=== PATIENT | female | born 1990 | race Caucasian/White ===

== ENCOUNTER 2017-02-11 23:20 | Emergency (ER) | payer OTHER ==
[2017-02-11 23:27] VITALS: BP 128/75; PULSE 86; RESP 20; TEMP 98.3
--- NOTE | 2017-02-11 23:55 | ED ---
Female Urogenital HPI - General Chief complaint: Urogenital Stated complaint: UTI () Time Seen by Provider: 02/11/17 23:43 Source: patient, RN notes reviewed Mode of arrival: ambulatory Limitations: no limitations - History of Present Illness Initial comments: Patient is a 26-year-old female presents to the emergency room for evaluation of dysuria. Patient states she just found out she was on Thursday. Patient states that at work she began having urinary frequency and burning. Patient states she is having a pressure-like sensation in her bladder area. Patient states she does have a history of UTIs with past pregnancies. Patient states this feels exactly like a urinary tract infection. Patient denies blood in the urine. Patient denies vaginal bleeding. Patient denies abnormal vaginal discharge or vaginal discomfort. Patient denies history of STDs. Patient denies flank pain. Patient denies fevers or chills. Patient states he has been nauseous over the past week but denies vomiting. Patient denies headache or dizziness. Patient denies chest pain or shortness of breath. Patient states she is still waiting to here back from her MEDICATION AIDE, Dr. Victoria. Patient denies any other symptoms or complaints at this time. Last Menstrual Period: 01/13/17 - Related Data Home Medications Medication Instructions Recorded Confirmed Pnv with Ca,No.72/Iron/FA 1 tab PO DAILY 02/26/16 02/26/16 [ Plus Tablet] Previous Rx's Medication Instructions Recorded Nitrofurantoin Monohyd/M-Cryst 100 mg PO Q12HR 5 Days 02/12/17 [Macrobid] Allergies Allergy/AdvReac Type Severity Reaction Status Date / Time Penicillins Allergy Unknown Verified 02/12/17 01:21 Childhood Review of Systems ROS Statement: Those systems with pertinent positive or pertinent negative responses have been documented in the HPI. ROS Other: All systems not noted in ROS Statement are negative. Past Medical History Past Medical History: No Reported History History of Any Multi-Drug Resistant Organisms: None Reported Past Surgical History: Cholecystectomy Past Psychological History: No Psychological Hx Reported Smoking Status: Never smoker Past Alcohol Use History: None Reported Past Drug Use History: None Reported General Exam - General Exam Comments Initial Comments: Sitting in exam room, no acute distress. Limitations: no limitations General appearance: alert, in no apparent distress Head exam: Present: atraumatic, normocephalic, normal inspection Eye exam: Present: normal appearance ENT exam: Present: normal exam Neck exam: Present: normal inspection Respiratory exam: Present: normal lung sounds bilaterally. Absent: respiratory distress Cardiovascular Exam: Present: regular rate, normal rhythm, normal heart sounds GI/Abdominal exam: Present: soft, normal bowel sounds. Absent: distended, tenderness, guarding, rebound, rigid Extremities exam: Present: normal inspection Back exam: Present: normal inspection Neurological exam: Present: alert, oriented X3, CN II-XII intact, normal gait Psychiatric exam: Present: normal affect, normal mood Skin exam: Present: warm, dry, intact, normal color. Absent: rash Course Vital Signs 02/11/17 23:25 Temperature 98.3 F Pulse Rate 86 Respiratory 20 Rate Blood Pressure 128/75 O2 Sat by Pulse 99 Oximetry Medical Decision Making - Medical Decision Making Patient is a 26-year-old female presents to the emergency room for evaluation of dysuria. Patient states just found out she was on Thursday. Patient denies vaginal bleeding or significant abdominal discomfort. Urinalysis suspicious for urinary tract infection. Patient will be started on Macrobid. Patient states she understands everything that was discussed with her. Return parameters discussed. Case discussed Dr. Mathews. - Lab Data Lab Results 02/11/17 02/11/17 Range/Units 23:30 23:30 Urine Color Colorless Urine Appearance Clear (Clear) Urine pH 6.5 (5.0-8.0) Ur Specific Shelby 1.003 (1.001-1.035) Urine Protein Negative (Negative) Urine Glucose (UA) Negative (Negative) Urine Ketones Negative (Negative) Urine Blood Moderate H (Negative) Urine Nitrite Negative (Negative) Urine Bilirubin Negative (Negative) Urine Urobilinogen <2.0 (<2.0) mg/dL Ur Leukocyte Esterase Large H (Negative) Urine RBC 3 (0-5) /hpf Urine WBC 66 H (0-5) /hpf Ur Squamous Epith Cells 1 (0-4) /hpf Urine Bacteria Occasional H (None) /hpf Urine HCG, Qual Detected (Not Detectd) Disposition Clinical Impression: Urinary tract infection, Disposition: HOME SELF-CARE Condition: Good Instructions: Urinary Tract Infection in (ED) Additional Instructions: Take antibiotics as directed. Drink plenty of water. Please follow-up with primary care provider or MEDICATION AIDE. If any new symptom arises or symptoms worsen, return to ER as soon as possible. Prescriptions: Nitrofurantoin Monohyd/M-Cryst [Macrobid] 100 mg PO Q12HR 5 Days Referrals: Lesley Victoria DO [Doctor of Osteopathic Medicine] - 1-2 days Time of Disposition: 00:19
[2017-02-12 00:10] LABS: Appearance,Urine Clear (Clear); Bacteria,Urine Occasional /hpf; Bilirubin,Urine Negative (Negative); Glucose,Urine (UA) Negative (Negative); Ketones,Urine Negative (Negative); Leukocyte Esterase,Urine Large (Negative); Nitrite,Urine Negative (Negative); PH, Urine 6.5 (5.0-8.0); Particle Count 3821; Protein,Urine Negative (Negative); RBC,Urine 3 /hpf (0-5); Specific Gravity,Urine 1.003 (1.001-1.035); Squamous Epithelial Cell,Urine 1 /hpf (0-4); UA Billing (MACRO vs. MICRO) MICRO; Urobilinogen,Urine <2.0 mg/dL (<2.0); WBC,Urine 66 /hpf (0-5)
[2017-02-12] MEDS ORDERED: NITROFURANTOIN MONOHYD/M-CRYST 100 MG CAP PO STA (00:21)
== END 2017-02-12 00:27 | disposition home or self-care (01) ==
LOC: EC 23:20
DX: O23.41 Unspecified infection of urinary tract in pregnancy, first trimester (principal); Z79.899 Other long term (current) drug therapy; Z88.0 Allergy status to penicillin; Z3A.00 Weeks of gestation of pregnancy not specified
CPT/HCPCS: 81001; 81025; 87077; 87086; 87186; 99283

== ENCOUNTER 2017-02-12 01:12 | Emergency (ER) | payer OTHER ==
[2017-02-12 01:21] VITALS: RESP 18
--- NOTE | 2017-02-12 01:55 | ED ---
Female Urogenital HPI - General Chief complaint: Vaginal Bleeding Stated complaint: vaginal bleeding Time Seen by Provider: 02/12/17 01:25 Source: patient, RN notes reviewed Mode of arrival: ambulatory Limitations: no limitations - History of Present Illness Initial comments: Patient is a 26-year-old female presents to the emergency room for the evaluation of vaginal bleeding. Patient was recently discharged here today and diagnosed with a urinary tract infection. Patient states she was on her way to the pharmacy and went to the bathroom and noticed bright red blood after wiping herself with toilet paper. Patient denies any clotting. Patient states she recently found out she was on Thursday. Patient states her last menstrual cycle was 01/13/17. Patient denies any abdominal pain or cramping. Patient states the blood worried her so she thought she should be evaluated. Patient denies being on any medications besides vitamins and was just prescribed Macrobid. Patient denies history of STDs. Patient is . - Related Data Home Medications Medication Instructions Recorded Confirmed Pnv with Ca,No.72/Iron/FA 1 tab PO DAILY 02/26/16 02/12/17 [ Plus Tablet] Previous Rx's Medication Instructions Recorded Nitrofurantoin Monohyd/M-Cryst 100 mg PO Q12HR 5 Days 02/12/17 [Macrobid] Allergies Allergy/AdvReac Type Severity Reaction Status Date / Time Penicillins Allergy Unknown Verified 02/12/17 01:21 Childhood Review of Systems ROS Statement: Those systems with pertinent positive or pertinent negative responses have been documented in the HPI. ROS Other: All systems not noted in ROS Statement are negative. Past Medical History Past Medical History: No Reported History History of Any Multi-Drug Resistant Organisms: None Reported Past Surgical History: Cholecystectomy Past Psychological History: No Psychological Hx Reported Smoking Status: Never smoker Past Alcohol Use History: None Reported Past Drug Use History: None Reported General Exam - General Exam Comments Initial Comments: Sitting in exam room, no acute distress. Limitations: no limitations General appearance: alert, in no apparent distress Head exam: Present: atraumatic, normocephalic, normal inspection Eye exam: Present: normal appearance ENT exam: Present: normal exam Neck exam: Present: normal inspection Respiratory exam: Present: normal lung sounds bilaterally. Absent: respiratory distress Cardiovascular Exam: Present: regular rate, normal rhythm, normal heart sounds GI/Abdominal exam: Present: soft, normal bowel sounds. Absent: distended, tenderness, guarding, rebound, rigid External exam: Present: normal external exam Speculum exam: Present: vaginal discharge By manual exam: Present: normal by manual exam. Absent: cervical motion tenderness Extremities exam: Present: normal inspection Back exam: Present: normal inspection Neurological exam: Present: alert, oriented X3, CN II-XII intact, normal gait Psychiatric exam: Present: normal affect, normal mood Skin exam: Present: warm, dry, intact, normal color. Absent: rash Course Vital Signs 02/12/17 01:17 Temperature 98.5 F Pulse Rate 95 Respiratory 18 Rate Blood Pressure 144/81 O2 Sat by Pulse 98 Oximetry Medical Decision Making - Medical Decision Making Patient is a 26-year-old female presents to the emergency room for evaluation of vaginal bleeding. Patient recently found out she was on Thursday. Patient states her last menstrual cycle was 01/13/17. Patient was in here earlier and diagnosed with urinary tract infection and positive urine beta hCG. Patient's serum beta-hCG is 145.7. No bleeding noted on pelvic exam. Ultrasound: 2 mm intrauterine probable chorionic sac. No definite internal embryo or yolk sac is seen at this time. Patient's blood type is B positive. Patient states she will contact her SHAREPOINT TRAINER, Dr. Victoria tomorrow morning. Patient states she understands everything that was discussed with her. Return parameters discussed. Case discussed with Dr. Mathews. - Lab Data Lab Results 02/12/17 02/12/17 02/12/17 Range/Units 01:40 01:40 02:19 HCG, Quant 145.7 mIU/mL Trichomonas Ag (Rapid) Negative (Negative) Blood Type B Positive Blood Type Recheck No - Radiology Data Radiology results: report reviewed, image reviewed Disposition Clinical Impression: Threatened Disposition: HOME SELF-CARE Condition: Good Instructions: Threatened Miscarriage (ED) Additional Instructions: Please follow-up with SHAREPOINT TRAINER. If any new symptom arises or symptoms worsen, return to ER as soon as possible. Referrals: None,Stated [Primary Care Provider] - 1-2 days Lesley Victoria DO [Doctor of Osteopathic Medicine] - 1-2 days Time of Disposition: 03:12
--- NOTE | 2017-02-12 03:05 | US ---
EXAM: US Pelvis Complete, Transabdominal US Pelvis, Transvaginal CLINICAL HISTORY: Reason: Pain TECHNIQUE: Real-time transabdominal and transvaginal pelvic ultrasound (complete) with image documentation. Transvaginal imaging was used for better evaluation of the endometrium and adnexa. COMPARISON: No relevant prior studies available. FINDINGS/IMPRESSION: EXAM: US Pelvis Complete, Transabdominal US Pelvis, Transvaginal CLINICAL HISTORY: Reason: Pain TECHNIQUE: Real-time transabdominal and transvaginal pelvic ultrasound (complete) with image documentation. Transvaginal imaging was used for better evaluation of the endometrium and adnexa. COMPARISON: No relevant prior studies available. FINDINGS/IMPRESSION: EXAM: US Pelvis Complete, Transabdominal US Pelvis, Transvaginal CLINICAL HISTORY: Pain. TECHNIQUE: Real-time transabdominal and transvaginal pelvic ultrasound (complete) with image documentation. Transvaginal imaging was used for better evaluation of the endometrium and adnexa. COMPARISON: No relevant prior studies available. FINDINGS/IMPRESSION: 2 mm intrauterine probable chorionic sac. No definite internal embryo or yolk sac is seen at this time. Correlate with serial beta hCG values and short-term followup sonogram. No subchorionic bleed. 2.8 x 2 x 1.9 cm, likely corpus luteal cyst in right ovary. No adnexal masses or free fluid.
[2017-02-12 03:24] VITALS: BP 137/68; PULSE 77; TEMP 98
[2017-02-13 11:29] LABS: Chlamydia/GC Source Vaginal
== END 2017-02-12 03:24 | disposition home or self-care (01) ==
LOC: EC 01:12
DX: O20.0 Threatened abortion (principal); Z79.899 Other long term (current) drug therapy; Z88.0 Allergy status to penicillin; Z3A.00 Weeks of gestation of pregnancy not specified
CPT/HCPCS: 36415; 76801; 76817; 84702; 86900; 86901; 87070; 87205; 87491; 87591; 87808; 99284

== ENCOUNTER → 2017-02-16 | Outpatient (CLI) | payer OTHER | END | disposition home or self-care (01) | LOC: LABWHC1 12:16 | PROVIDERS: ATTEND Obstetrics & Gynecology | DX: Z34.81 Encounter for supervision of other normal pregnancy, first trimester (principal) | CPT/HCPCS: 36415; 84702 ==

== ENCOUNTER → 2017-03-11 | Outpatient (CLI) | payer OTHER ==
--- NOTE | 2017-03-11 14:23 | US ---
EXAMINATION TYPE: US OB <= 14 wk fetus DATE OF EXAM: 03/11/2017 1:59 PM COMPARISON: US 2017 CLINICAL HISTORY: Z87.59 Hx of miscarriage Z36 confirm dates. EXAM PERFORMED: Transabdominal (TA) EXAM MEASUREMENTS: GESTATIONAL AGE / DATING Physician Established: not established Dates by LMP: (8 weeks/1 day) EDC: 10/20/2017 Dates by First Scan: today Dates by Current Scan for: (7 weeks/6 days) EDC: 10/22/2017 MATERNAL ANATOMY Uterus: 9.2 x 7.0 x 4.7cm Right Ovary: 2.8 x 3.0 x 1.8cm Left Ovary: 2.5 x 1.5 x 1.6cm Post CDS / Adnexa: wnl Presence of free fluid: no Presence of corpus luteal cyst: in right ovary = 2.0 x 1.9 x 1.9cm Presence of subchorionic bleed: yes, GESTATION / SURVEY CRL: 1.5cm (7 weeks/6 days) Yolk Sac (normal less than 6mm): 3.3mm Heart Rate: 161 bpm Rhythm: Normal IUP: Viable IUP Date of LMP: 01/13/2017 Beta HcG (if available): NA IMPRESSION: Single, viable, IUP, 7 weeks/6 days, EDC: 10/22/2017, [id number] with a less than 1 cm subchorionic he morrhage
[2017-03-11 14:54] LABS: CH 29.6; CHCM 31.9; HCT 45.7 % (34.0-46.0); HDW 2.21; MCH 30.6 pg (25.0-35.0); MCHC 32.9 g/dL (31.0-37.0); Mean Platelet Volume 7.3; RBC 4.91 m/uL (3.80-5.40); RDW 13.5 % (11.5-15.5); WBC 9.3 k/uL (3.8-10.6)
[2017-03-11 15:07] LABS: Glucose 89 mg/dL (74-99); Non-African American GFR(MDRD) >60 (>60 ml/min/1.73 sqM)
[2017-03-11 15:38] LABS: Hepatitis B Surface Ag Index 0.06
[2017-03-12 04:56] LABS: Toxoplasma Antibody (IgG) <3.0 IU/mL (<7.2)
[2017-03-12 07:27] LABS: HIV-1/HIV-2 Ab Screen NONREAC (NON REAC)
== END | disposition home or self-care (01) ==
LOC: RADUSWWP 13:36
PROVIDERS: ATTEND Obstetrics & Gynecology
DX: O26.811 Pregnancy related exhaustion and fatigue, first trimester (principal); Z3A.01 Less than 8 weeks gestation of pregnancy; Z87.59 Personal history of other complications of pregnancy, childbirth and the puerperium
CPT/HCPCS: 36415; 76801; 82565; 82947; 85027; 86762; 86777; 86778; 86780; 86850; 86900; 86901; 87340; 87389

== ENCOUNTER → 2017-07-21 | Outpatient (CLI) | payer OTHER ==
[2017-07-21 09:31] LABS: CHCM 32.4; HDW 2.55; HGB 13.7 gm/dL (11.4-16.0); MCH 30.4 pg (25.0-35.0); MCHC 32.6 g/dL (31.0-37.0); MCV 93.1 fL (80.0-100.0); Mean Platelet Volume 7.3; RBC 4.51 m/uL (3.80-5.40); RDW 13.4 % (11.5-15.5); WBC 10.4 k/uL (3.8-10.6)
[2017-07-21 15:38] LABS: Treponemal Ab Non-Reactive (Non-Reactive)
== END | disposition home or self-care (01) ==
LOC: LABWHC1 08:02
PROVIDERS: ATTEND Pediatrics Neonatal-Perinatal Medicine
DX: O09.212 Supervision of pregnancy with history of pre-term labor, second trimester (principal); O35.1XX0 Maternal care for (suspected) chromosomal abnormality in fetus, not applicable or unspecified; O34.32 Maternal care for cervical incompetence, second trimester; Z3A.00 Weeks of gestation of pregnancy not specified
CPT/HCPCS: 36415; 82950; 85027; 86780; 87390

== ENCOUNTER → 2017-07-28 | Outpatient (CLI) | payer OTHER ==
[2017-07-28 12:53] LABS: Glucose 3 Hour, Gest 106 mg/dL
== END | disposition home or self-care (01) ==
LOC: LABWHC1 08:30
PROVIDERS: ATTEND Pediatrics Neonatal-Perinatal Medicine
DX: R73.09 Other abnormal glucose (principal)
CPT/HCPCS: 36415; 82951; 82952

== ENCOUNTER 2017-09-04 02:05 | Outpatient (CLI) | payer OTHER ==
[2017-09-04 03:08] VITALS: BP 129/87; PULSE 78; RESP 16; TEMP 96.5
--- NOTE | 2017-09-04 11:43 | P.MSEPDOC ---
Presenting Problems - Arrival Data Date of Arrival on Unit: 09/04/17 Time of Arrival on Unit: 02:05 Mode of Transport: Wheelchair - Complaint OB-Reason for Admission/Chief Complaint: Observation/Evaluation Comment: pelvic pressure Medical History - Information : 5 Para: 2 Term: 1 : 1 Abortions: Spontaneous or Elective: 0 Number of Living Children: 2 - Gestational Age Gestational Age by DAVE (wks/days): 33 Weeks and 3 Days - History Complications: Incompetent Cervix Review of Systems - Review of Systems Constitutional: No problems Breast: No problems ENT: No problems Cardiovascular: No problems Respiratory: No problems Gastrointestinal: No problems Genitourinary: No problems Musculoskeletal: No problems Neurological: No problems Skin: No problems Vital Signs - Temperature Temperature: 96.5 F Temperature Source: Temporal Artery Scan - Pulse Right Brachial Pulse Rate: 78 Pulse Assessment Method: Automatic Cuff - Respirations Respiratory Rate: 16 Oxygen Delivery Method: Room Air O2 Sat by Pulse Oximetry: 100 - Blood Pressure Right Arm Blood Pressure: 129/87 Blood Pressure Mean: 101 Blood Pressure Source: Automatic Cuff Medical Screen Scoring (Pre) - Cervical Exam Dilation: 0 cm = 0 Effacement: More than 50% = 2 Membranes: Intact - Uterine Contractions Frequency: N/A Duration: N/A Intensity: N/A - Maternal Vital Signs Maternal Temperature: N/A Maternal Blood Pressure: N/A Signs of Preeclampsia: N/A Maternal Respirations: N/A - Pain Assessment Pain Intensity: 0 - Assessment Baseline FHR: 142 Heart Rate - NICHD Category: Category I (Normal) = 0 NST: Reactive Position: N/A Station: N/A - Total Score Total Score (Pre): 2 - Level of Risk Level of Risk: Low (0-5) Physician Notification (Pre) - Physician Notified Physician Notified Date: 09/04/17 Physician Notified Time: 02:39 Spoke With: Devon Simeon Received: Yes - Notification Comment Comment: D/c pt home no cervical change Disposition - Disposition OB Disposition: Discharge to home Discharge Date: 09/04/17 Discharge Time: 02:44 I agree with the RN Medical Screening Exam: Yes Risk & Benefit of care provided described in d/c instruction: Yes Diagnosis: FALSE LABOR BEFORE 37 COMPLETED WEEKS OF GEST, SECOND TRI
== END 2017-09-04 02:44 | disposition home or self-care (01) ==
LOC: FBPOP 02:05
PROVIDERS: ATTEND Obstetrics & Gynecology
DX: O47.02 False labor before 37 completed weeks of gestation, second trimester (principal); Z3A.33 33 weeks gestation of pregnancy
CPT/HCPCS: 59025; G0463; 99213

== ENCOUNTER 2017-09-06 16:40 | Outpatient (CLI) | payer OTHER ==
[2017-09-06 18:11] VITALS: BP 100/61; PULSE 110; RESP 17; TEMP 97.4
--- NOTE | 2017-10-23 11:35 | P.MSEPDOC ---
Presenting Problems - Arrival Data Date of Arrival on Unit: 09/06/17 Time of Arrival on Unit: 16:40 Mode of Transport: Wheelchair - Complaint OB-Reason for Admission/Chief Complaint: Vaginal Bleeding Comment: Scant amount of bloody mucus noted while patient was at home. Medical History - Information : 5 Para: 2 Term: 1 : 1 Abortions: Spontaneous or Elective: 0 Number of Living Children: 2 - Gestational Age Gestational Age by DAVE (wks/days): 33 Weeks and 5 Days - History Complications: Incompetent Cervix, Prior Comment: Prior 32 week delivery Review of Systems - Review of Systems Constitutional: No problems Breast: No problems ENT: No problems Cardiovascular: No problems Respiratory: No problems Gastrointestinal: No problems Genitourinary: No problems Musculoskeletal: No problems Neurological: No problems Skin: No problems Vital Signs - Temperature Temperature: 97.4 F Temperature Source: Temporal Artery Scan - Pulse Pulse Oximetery Pulse Rate: 110 Pulse Assessment Method: Pulse Oximetry - Respirations Respiratory Rate: 17 Oxygen Delivery Method: Room Air O2 Sat by Pulse Oximetry: 98 - Blood Pressure Right Arm Blood Pressure: 100/61 Blood Pressure Mean: 74 Blood Pressure Source: Automatic Cuff Medical Screen Scoring (Pre) - Cervical Exam Dilation: Exam Deferred Effacement: Exam Deferred Membranes: Intact - Uterine Contractions Frequency: > 5 minutes apart = 1 Duration: N/A Intensity: N/A - Maternal Vital Signs Maternal Temperature: N/A Maternal Blood Pressure: N/A Signs of Preeclampsia: N/A Maternal Respirations: N/A - Pain Assessment Pain Scale Used: Numeric (1 - 10) Pain Intensity: 0 - Maternal Trauma Maternal Trauma: N/A - Assessment Baseline FHR: 135 Heart Rate - NICHD Category: Category I (Normal) = 0 NST: Reactive Position: N/A Station: N/A - Total Score Total Score (Pre): 1 - Level of Risk Level of Risk: Low (0-5) Physician Notification (Pre) - Physician Notified Physician Notified Date: 09/06/17 Physician Notified Time: 17:03 Physician/Practitioner Notifed:: Magdy Spoke With: Madgy New Order Received: Yes (Further monitoring for 30 minutes) Medical Screen Scoring (Post) - Cervical Exam Dilation: Exam Deferred Effacement: Exam Deferred Membranes: Intact - Uterine Contractions Frequency: > 5 minutes apart = 1 Duration: N/A Intensity: N/A - Maternal Vital Signs Maternal Temperature: N/A Maternal Blood Pressure: N/A Signs of Preeclampsia: N/A Maternal Respirations: N/A - Pain Assessment Pain Location and Character: Back Pain Scale Used: Numeric (1 - 10) Pain Intensity: 3 Pain Management Goal: 2 Pain Description: Cramping Pain Radiation Location: n/a Pain Frequency: Intermittent Pain Duration: 30 Pain Duration Units: Minutes Pain Behavior: Vocalization Effects of Pain: none Pain Aggravating Factors: None Pharmacological Interventions: Discuss Pain Med Options Non-Pharmacological Interventions: Darkened Room - Assessment Heart Rate: 135 Heart Rate - NICHD Category: Category I (Normal) = 0 NST: Reactive Position: N/A Station: N/A - Total Score Total Score (Post): 1 - Post Treatment Level of Risk Post Treatment Level of Risk: Low (0-5) Physician Notification (Post) - Physician Notified Physician Notified Date: 09/06/17 Physician Notified Time: 17:46 Physician/Practitioner Notified:: Magdy Spoke With: Magdy New Order Received: Yes (Discharge order) - Notification Comment Comment: To discharge patient and encourage patient to follow up this week with her high risk physician. Disposition - Disposition OB Disposition: Discharge to home Discharge Date: 09/06/17 Discharge Time: 17:58 I agree with the RN Medical Screening Exam: Yes Risk & Benefit of care provided described in d/c instruction: Yes Diagnosis: FALSE LABOR BEFORE 37 COMPLETED WEEKS OF GEST, THIRD TRI
== END 2017-09-06 17:58 | disposition home or self-care (01) ==
LOC: FBPOP 16:40
PROVIDERS: ATTEND Obstetrics & Gynecology
DX: O47.03 False labor before 37 completed weeks of gestation, third trimester (principal); Z3A.33 33 weeks gestation of pregnancy
CPT/HCPCS: 59025; G0463; 99213

== ENCOUNTER 2017-09-27 22:44 | Outpatient (CLI) | payer OTHER ==
[2017-09-27 23:58] VITALS: BP 130/80; PULSE 95; RESP 16; TEMP 96.9
--- NOTE | 2017-10-07 07:41 | P.MSEPDOC ---
Presenting Problems - Arrival Data Date of Arrival on Unit: 09/27/17 Time of Arrival on Unit: 22:44 Mode of Transport: Wheelchair - Complaint OB-Reason for Admission/Chief Complaint: Possible Onset of Labor Comment: pt states she has been having contractions since 3am and vaginal pressure Medical History - Information : 5 Para: 2 Term: 1 : 1 Abortions: Spontaneous or Elective: 0 Number of Living Children: 2 - Gestational Age Gestational Age by DAVE (wks/days): 36 Weeks and 5 Days - History Complications: Incompetent Cervix Comment: had cerclage removed on thursday Review of Systems - Review of Systems Constitutional: No problems Breast: No problems ENT: No problems Cardiovascular: No problems Respiratory: No problems Gastrointestinal: No problems Genitourinary: No problems Musculoskeletal: No problems Neurological: No problems Skin: No problems Vital Signs - Temperature Temperature: 96.9 F Temperature Source: Temporal Artery Scan - Pulse Right Sitting Brachial Pulse Rate: 95 Pulse Assessment Method: Automatic Cuff - Respirations Respiratory Rate: 16 - Blood Pressure Right Arm Blood Pressure: 130/80 Blood Pressure Mean: 96 Blood Pressure Source: Automatic Cuff Medical Screen Scoring (Pre) - Cervical Exam Dilation: 1-3 cm = 1 Membranes: Intact - Uterine Contractions Frequency: N/A Duration: N/A Intensity: N/A - Maternal Vital Signs Maternal Temperature: N/A Maternal Blood Pressure: N/A Signs of Preeclampsia: N/A Maternal Respirations: N/A - Pain Assessment Pain Location and Character: Abdomen, Perineal Pain Scale Used: Numeric (1 - 10) Pain Intensity: 6 Pain Management Goal: 2 Pain Description: *Acute Pain Radiation Location: none Pain Frequency: Intermittent Pain Duration: 16 Pain Duration Units: Hours Pain Behavior: Vocalization Pain Aggravating Factors: None - Maternal Trauma Maternal Trauma: N/A - Assessment Baseline FHR: 140 Heart Rate - NICHD Category: Category I (Normal) = 0 NST: Reactive Position: N/A Station: N/A - Total Score Total Score (Pre): 1 - Level of Risk Level of Risk: Low (0-5) Physician Notification (Pre) - Physician Notified Physician Notified Date: 09/27/17 Physician Notified Time: 23:15 Physician/Practitioner Notifed:: Lorin Clark Order Received: Yes (discharge home) Disposition - Disposition OB Disposition: Discharge to home Discharge Date: 09/27/17 Discharge Time: 23:25 I agree with the RN Medical Screening Exam: Yes Risk & Benefit of care provided described in d/c instruction: Yes Diagnosis: FALSE LABOR BEFORE 37 COMPLETED WEEKS OF GEST, THIRD TRI
== END 2017-09-27 23:25 | disposition home or self-care (01) ==
LOC: FBPOP 22:44
PROVIDERS: ATTEND Obstetrics & Gynecology
DX: O47.03 False labor before 37 completed weeks of gestation, third trimester (principal); Z3A.36 36 weeks gestation of pregnancy
CPT/HCPCS: 59025; G0463; 99213

== ENCOUNTER → 2019-06-13 | Outpatient (CLI) | payer OTHER ==
--- NOTE | 2019-06-16 12:56 | MR ---
EXAMINATION TYPE: MR brain wo/w con DATE OF EXAM: 06/13/2019 COMPARISON: None HISTORY: Headaches, hx cyst TECHNIQUE: Multiplanar, multisequence images of the brain and brainstem is performed without and with IV contras t, utilizing 10 mL intravenous Gadavist . FINDINGS: Diffusion weighted images demonstrate no evidence of a recent infarct or other diffusion ab normality. There is no significant white matter signal abnormality. The ventricular system and cis ternal spaces are normal in size and appearance. The brain volume is age appropriate. Midline structures demonstrate normal morphology. The craniocervical junction appears within normal limits. Post contrast images demonstrate no abnormal enhancement. The dural venous sinuses appear pa tent. There is a left cerebellopontine angle cystic mass measuring 2.6 x 1.9 cm. Results in mass effect upo n the anterior margin of the left cerebellar hemisphere, left lateral margin the sanjay and 5th cranial nerve. No enhancement. Suspect a tiny venous angioma within the left parietal lobe. Changes of chronic sinusitis are noted. IMPRESSION: 1. 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
== END | disposition home or self-care (01) ==
LOC: RADMRIMAIN 19:40
PROVIDERS: ATTEND Psychiatry & Neurology Neurology
DX: G93.9 Disorder of brain, unspecified (principal); G43.909 Migraine, unspecified, not intractable, without status migrainosus; Z88.0 Allergy status to penicillin
CPT/HCPCS: 70553; A9585